=== PATIENT | female | born 1980 | race Two or more races ===

== ENCOUNTER → 2019-12-16 | Outpatient (CLI) | payer OTHER | END | disposition home or self-care (01) | LOC: PRENATAL 12-12 14:30 | PROVIDERS: ATTEND Specialist | DX: O35.0XX1 Maternal care for (suspected) central nervous system malformation in fetus, fetus 1 (principal); O35.3XX1 Maternal care for (suspected) damage to fetus from viral disease in mother, fetus 1; O09.522 Supervision of elderly multigravida, second trimester ==

== ENCOUNTER 2020-04-09 16:10 | Outpatient (CLI) | payer OTHER | END 2020-04-09 22:39 | disposition home or self-care (01) | LOC: OBS/DEL 16:10 | PROVIDERS: ATTEND Specialist | DX: O26.843 Uterine size-date discrepancy, third trimester (principal); O36.8130 Decreased fetal movements, third trimester, not applicable or unspecified; O42.113 Preterm premature rupture of membranes, onset of labor more than 24 hours following rupture, third trimester; O26.893 Other specified pregnancy related conditions, third trimester; N89.8 Other specified noninflammatory disorders of vagina ==

== ENCOUNTER 2020-04-16 08:52 | Inpatient (IN) | payer OTHER ==
[~2020-04-16] VITALS: Ht 154.9 cm; Wt 69.9 kg
[2020-04-16] MEDS ORDERED: PRENATAL TABLE1 EAC3 PO (16:06)
[2020-04-16] MEDS ORDERED: VALTREX1000 MG PO (16:08)
== END 2020-04-18 18:56 | disposition home or self-care (01) | DRG 807 ==
LOC: LDR 08:52 → SURG-SUITE 08:52
PROVIDERS: ADMIT Specialist; ATTEND Specialist
PROC: 10E0XZZ Delivery of Products of Conception, External Approach (ICD-10-PCS; principal; 2020-04-16)
PROC: 0KQM0ZZ Repair Perineum Muscle, Open Approach (ICD-10-PCS; 2020-04-16)
PROC: 4A1HXFZ Monitoring of Products of Conception, Cardiac Rhythm, External Approach (ICD-10-PCS; 2020-04-16)
PROC: 3E033VJ Introduction of Other Hormone into Peripheral Vein, Percutaneous Approach (ICD-10-PCS; 2020-04-16)
DX: O70.1 Second degree perineal laceration during delivery (principal); Z37.0 Single live birth; Z3A.39 39 weeks gestation of pregnancy; Z20.828 Contact with and (suspected) exposure to other viral communicable diseases